=== PATIENT | female | born 1995 | race Two or more races ===

== ENCOUNTER 2024-08-04 12:04 | Emergency (ER) | payer OTHER ==
[~2024-08-04] VITALS: Ht 162.6 cm; Wt 63.5 kg
[2024-08-04] MEDS ORDERED: KETOROLAC TROMETHAMINE 60 MG VIAL IM STA (13:21)
[2024-08-04] MEDS ORDERED: KETOROLAC TROMETHAMINE 60 MG VIAL IM ONE (13:28)
[2024-08-04 13:49] LABS: HEMATOCRIT 39.2 % (36.0-45.00); HEMOGLOBIN 13.9 g/dL (12.0-15.00); MEAN CELL VOLUME 86.3 fL (80.00-100.00); MEAN CORPUSCULAR HEMOGLOBIN 30.5 pg (27.00-32.0); MEAN CORPUSCULAR HGB CONC 35.4 g/dl (32.0-36.0); PLATELET COUNT 151 K/uL (150-450); RED BLOOD COUNT 4.55 M/uL (4.00-6.00); RED CELL DISTRIBUTION WIDTH 13.6 % (11.5-14.5)
[2024-08-04 14:05] LABS: CALCIUM 8.9 mg/dL (8.5-10.1); CREATININE SERUM 0.63 mg/dL (0.55-1.02); GFR 113.35; POTASSIUM 3.8 mEq/L (3.5-5.1)
[2024-08-04 14:46] LABS: PH,URINE 6.5 (5.0-8.0); URINE APPEARANCE Turbid; URINE BILIRRUBIN Negative (NEGATIVE); URINE BLOOD Small; URINE COLOR Dark Yellow; URINE GLUCOSE Negative (NEGATIVE); URINE KETONE Negative (NEGATIVE); URINE LEUKOCYTE Moderate; URINE NITRATE Negative; URINE PROTEIN 30 (NEGATIVE)
[2024-08-04 14:49] LABS: URINE CAST 4.12 uL (0.0-1.40); URINE RBC 59.7 uL (0.0-20.8); URINE WBC 2226.2 uL (0.0-23.2)
[2024-08-04 15:10] LABS: URINE EPITHELIAL CELLS > 201.7 uL (0.0-38.8)
[2024-08-04 15:11] LABS: URINE BACTERIA > 9821.5 uL (0.0-1933); URINE MUCUS SCANT
== END 2024-08-04 15:27 | disposition home or self-care (01) ==
LOC: ER 12:05
PROVIDERS: General Practice
DX: N39.0 Urinary tract infection, site not specified (principal); R10.2 Pelvic and perineal pain; R10.9 Unspecified abdominal pain

== ENCOUNTER → 2025-03-21 | Emergency (ER) | payer OTHER ==
[~2025-03-21] VITALS: Ht 152.4 cm; Wt 59.0 kg
[~2025-03-21] MED LIST: KETOROLAC TROMETHAMINE 30 MG VIAL IM STA; KETOROLAC TROMETHAMINE 30 MG VIAL ONE; RESTORIL15 MG PO
[2025-03-21 16:42] VITALS: BP 114/80; O2SAT 99
[2025-03-21 18:00] LABS: HEMATOCRIT 42.6 % (36.0-45.00); HEMOGLOBIN 15.1 g/dL (12.0-15.00); MEAN CELL VOLUME 87.2 fL (80.00-100.00); MEAN CORPUSCULAR HEMOGLOBIN 30.8 pg (27.00-32.0); MEAN CORPUSCULAR HGB CONC 35.4 g/dl (32.0-36.0); PLATELET COUNT 182 K/uL (150-450); RED BLOOD COUNT 4.89 M/uL (4.00-6.00); RED CELL DISTRIBUTION WIDTH 13.6 % (11.5-14.5)
[2025-03-21 18:31] LABS: CALCIUM 9.7 mg/dL (8.5-10.1); CREATININE SERUM 0.66 mg/dL (0.55-1.02); GFR 106.64; POTASSIUM 4.47 mEq/L (3.5-5.1)
== END | disposition home or self-care (01) ==
LOC: ER 16:16
PROVIDERS: General Practice
DX: R07.89 Other chest pain (principal); M25.512 Pain in left shoulder